=== PATIENT | male | born 1990 | race Caucasian/White ===

== ENCOUNTER 2018-03-04 13:47 | Emergency (ER) | payer SELFPAY ==
[2018-03-04 14:14] VITALS: BP 123/66
--- NOTE | 2018-03-04 14:52 | UC ---
Throat Pain/Nasal Thang HPI - HPI Summary HPI Summary: The patient is a 27-year-old male who is sent here for evaluation of his symptoms. He was at work today when he developed nausea and vomited once. He states that he has had hot and cold flashes since last evening. He has a mild sore throat. He has nasal congestion. He has mild headache. He denies any myalgias or arthralgias. He has no chest pain or shortness of breath. No longer has any nausea. Any abdominal pain. - History of Current Complaint Chief Complaint: UCGeneralIllness Stated Complaint: VOMITING Time Seen by Provider: 03/04/18 14:29 Hx Obtained From: Patient Onset/Duration: Sudden Onset, Lasting Hours Severity: Mild Pain Intensity: 0 Pain Scale Used: 0-10 Numeric Cough: Nonproductive Associated Signs & Symptoms: Positive: Sinus Discomfort, Fever - kayli, Vomiting - x1 - Allergies/Home Medications Allergies/Adverse Reactions: Allergies Allergy/AdvReac Type Severity Reaction Status Date / Time Latex, Natural Rubber Allergy Hives Verified 03/04/18 14:12 PMH/Surg Hx/FS Hx/Imm Hx Previously Healthy: Yes - Surgical History Surgical History: None - Family History Known Family History: Positive: Hypertension - Mom, Diabetes - Mom - Social History Alcohol Use: Occasionally Substance Use Type: None Smoking Status (MU): Heavy Every Day Tobacco Smoker Type: Cigarettes Amount Used/How Often: 1/2ppd Review of Systems Constitutional: Fever - kayli, Chills Skin: Negative Eyes: Negative ENT: Sore Throat, Sinus Congestion Respiratory: Negative Cardiovascular: Negative Gastrointestinal: Vomiting, Nausea Genitourinary: Negative Motor: Negative Neurovascular: Negative Musculoskeletal: Negative Neurological: Headache - mild Psychological: Negative All Other Systems Reviewed And Are Negative: Yes Physical Exam Triage Information Reviewed: Yes Appearance: Well-Appearing, No Pain Distress, Well-Nourished Vital Signs: Initial Vital Signs Temp 97.6 F 03/04/18 14:09 Pulse 65 03/04/18 14:09 Resp 16 03/04/18 14:09 BP 123/66 03/04/18 14:09 Pulse Ox 98 03/04/18 14:09 Vital Signs Reviewed: Yes Eyes: Positive: Conjunctiva Clear ENT: Positive: Hearing grossly normal, Pharyngeal erythema, Sinus tenderness, Uvula midline. Negative: Nasal congestion, Nasal drainage, Tonsillar swelling, Tonsillar exudate, Trismus, Muffled voice, Hoarse voice Neck: Positive: Supple, Nontender, Enlarged Nodes @ - ant cerv Respiratory: Positive: Lungs clear, Normal breath sounds, No respiratory distress, No accessory muscle use Cardiovascular: Positive: RRR, No Murmur Musculoskeletal: Positive: ROM Intact, No Edema Neurological: Positive: Alert Psychological Exam: Normal Skin Exam: Normal Diagnostics - Laboratory Diagnostic Studies Completed/Ordered: Strep (-) Throat Pain/Nasal Course/Dx - Differential Dx/Diagnosis Provider Diagnoses: Viral URI. acute nausea/vomiting Discharge - Sign-Out/Discharge Documenting (check all that apply): Patient Departure All imaging exams completed and their final reports reviewed: No Studies - Discharge Plan Condition: Stable Disposition: HOME Patient Education Materials: Upper Respiratory Infection (ED) Forms: *Work Release Referrals: No Primary Care Phys,NOPCP [Primary Care Provider] - Additional Instructions: recheck for new or worsening symptoms recheck in 1-2 days if not better - Billing Disposition and Condition Condition: STABLE Disposition: Home
== END 2018-03-04 15:20 | disposition home or self-care (01) ==
LOC: UCCORT 13:47
DX: J06.9 Acute upper respiratory infection, unspecified (principal); F17.210 Nicotine dependence, cigarettes, uncomplicated; Z91.040 Latex allergy status
CPT/HCPCS: 87651; 99202; G0463

== ENCOUNTER 2018-07-08 09:50 | Emergency (ER) | payer SELFPAY ==
[2018-07-08 12:15] VITALS: BP 115/68
--- NOTE | 2018-07-08 12:24 | UC ---
FLU HPI - HPI Summary HPI Summary: Pt with fevers, body aches, nausea, emesis (non bloody, no black) progressive x 2 days. tactile temp, chills + sick contact + cough with yellow sputum. no wheeze No meds taken. + tobacco use pt's medications reviewed this visit - History of Current Complaint Chief Complaint: UCRespiratory Stated Complaint: ACHES,NAUSEA,FEVER Time Seen by Provider: 07/08/18 12:18 Hx Obtained From: Patient Onset/Duration: Gradual Onset Severity Currently: Mild Severity Initially: Moderate Pain Intensity: 7 - Allergy/Home Medications Allergies/Adverse Reactions: Allergies Allergy/AdvReac Type Severity Reaction Status Date / Time Latex, Natural Rubber Allergy Hives Verified 07/08/18 12:10 Home Medications: Home Medications D-Methorphan/PE/Acetaminophen [Cold Relief/Non-Drowsy/Da 10-5-325 mg] 2 tab PO ONCE PRN 07/08/18 [History Confirmed 07/08/18] PMH/Surg Hx/FS Hx/Imm Hx Previously Healthy: Yes - Surgical History Surgical History: None - Family History Known Family History: Positive: Hypertension - Mom, Diabetes - Mom, Non- Contributory - Social History Occupation: Employed Full-time Alcohol Use: Occasionally Substance Use Type: Marijuana Substance Use Comment - Amount & Last Used: occasional use. Last used Sunday Smoking Status (MU): Heavy Every Day Tobacco Smoker Type: Cigarettes Amount Used/How Often: 1/2ppd Review of Systems All Other Systems Reviewed And Are Negative: Yes Constitutional: Positive: Fever, Fatigue ENT: Positive: Nasal Discharge, Sinus Congestion Respiratory: Positive: Cough Gastrointestinal: Positive: Vomiting, Nausea Musculoskeletal: Positive: Myalgia Physical Exam - Summary Physical Exam Summary: Vital Signs Reviewed: Yes A+Ox3, tired appearing Eyes: Conjunctiva Clear, MARTIR. EOM intact and full ENT: Hearing grossly normal TM x 2 clear, turbiantes and inflammed, + PND, mmoist, uvula midline, no exudate, no erythema Neck: Positive: Supple Respiratory: Positive: No respiratory distress, No accessory muscle use + coarse intermittent cough Cardiovascular: RRR nl s1, s2 no m/r CBT <2 sec abd soft + BS nt/nd no guarding, no distension no CVA Musculoskeletal Exam: WHEELER x 4 without difficulty Strength Intact, ROM Intact Neurological: Positive: Alert, + sensation throughout Psychological: Positive: Normal Response To Family Skin: Positive: no rash, no ecchymosis Triage Information Reviewed: Yes Vital Signs: Initial Vital Signs Temp 99 F 07/08/18 12:11 Pulse 69 07/08/18 12:11 Resp 17 07/08/18 12:11 BP 115/68 07/08/18 12:11 Pulse Ox 98 07/08/18 12:11 Flu Course/Dx - Course Course Of Treatment: Progressive congestion, body aches, cough, fever x 36 hours wiht nausea and emesis + influenza Will give zofran, apap motirn/apap hydrate decongestant work note humidifiy air - Differential Dx/Diagnosis Provider Diagnosis: Influenza A Discharge - Sign-Out/Discharge Documenting (check all that apply): Patient Departure All imaging exams completed and their final reports reviewed: No Studies - Discharge Plan Condition: Stable Disposition: HOME Prescriptions: Ondansetron ODT TAB* [Zofran 4 MG Odt TAB*] 4 mg PO Q4H PRN #10 tab.odt PRN Reason: Nausea Oseltamivir CAP* [Tamiflu CAP*] 75 mg PO BID #10 cap Patient Education Materials: Influenza (ED) Forms: *Gen. Provider Communication, *Work Release Referrals: [facility] [Outside] No Primary Care Phys,NOPCP [Primary Care Provider] - Additional Instructions: As discussed - your influenza test was positive today - you have "the flu" - Stay well hydrated. Drink plenty of non-alcoholic, non-caffinated beverages. - Alternate ibuprofen (Advil, Motrin) 600mg and Tylenol 1000mg every 3 hours for pain or fever. Take with food. Do NOT take for more than 4-5 days. - These infections are spread by secretions - do NOT share eating or drinking utensils - clean items you share with other people such as cell phones, computer mouse, TV remote, computer tablets,etc. Once you start to feel better, change your toothbrush and your pillowcase. - get plenty of restful sleep - humidify the air in the room where you sleep - boil water, run a hot steam shower, vaporizer, cups of water by heat register - okay to take over the counter decongestant and cough medication - Take medication as prescribed for nausea - contact your doctor or return with questions or concerns - Billing Disposition and Condition Condition: STABLE Disposition: Home
[2018-07-08 12:30] LABS: Influenza A Molecular POSITIVE (Negative)
[2018-07-08] MEDS ORDERED: Ondansetron ODT TAB* 4 MG PO ONE (12:36)
[2018-07-08] MEDS ORDERED: Acetaminophen TAB* 325 MG PO ONE (12:36)
== END 2018-07-08 13:17 | disposition home or self-care (01) ==
LOC: UCCORT 09:50
DX: R52 Pain, unspecified (principal); R50.9 Fever, unspecified; R11.0 Nausea
CPT/HCPCS: 99212; A9270-GY; G0463

== ENCOUNTER 2018-09-11 07:41 | Emergency (ER) | payer OTHER ==
[2018-09-11 08:06] VITALS: BP 114/65
--- NOTE | 2018-09-11 08:25 | UC ---
UC General HPI - HPI Summary HPI Summary: Patient heavy smoker, recently able to cut down to 1/2 ppd. Has a chronic cough , worried cough is worse, mostly concerned because yesterday after [employer], he had epigastric burning pain with tingling in epigastric region, improved after drinking milk. He laid in bad and coughed up black mucus. Happened one time. DOes get epigastric burning pain. Now feels like he is breathing in ice water and he feels cold when he breaths in. No fever. No chest pain. No congestion. No hx of inhaler use. This morning when he was outside he slipped on his steps and landed on right shoulder. His sister used to be an RN and helped him put his right shoulder back in its joint but he is still having pain. Hx of left shoulder dislocation. Meds: Reviewed - History of Current Complaint Chief Complaint: UCGeneralIllness Stated Complaint: COUGH S/P FALL RIGHT ELBOW/SHOULDER Time Seen by Provider: 09/11/18 08:01 Pain Intensity: 7 - Allergy/Home Medications Allergies/Adverse Reactions: Allergies Allergy/AdvReac Type Severity Reaction Status Date / Time Latex, Natural Rubber Allergy Hives Verified 07/08/18 12:10 Home Medications: Home Medications Glucosam/Chondr/Collagn/Hyalur [Th Glucosamine/Chondroiti] 1 cap PO DAILY [History Confirmed 09/11/18] PMH/Surg Hx/FS Hx/Imm Hx Previously Healthy: Yes - Surgical History Surgical History: None - Family History Known Family History: Positive: Hypertension - Mom, Diabetes - Mom, Non- Contributory - Social History Alcohol Use: Occasionally Substance Use Type: Marijuana Substance Use Comment - Amount & Last Used: occasional use Smoking Status (MU): Heavy Every Day Tobacco Smoker Type: Cigarettes Amount Used/How Often: 2- 1/2ppd Length of Time of Smoking/Using Tobacco: since age 15 Have You Smoked in the Last Year: Yes Review of Systems All Other Systems Reviewed And Are Negative: Yes Constitutional: Positive: Negative Respiratory: Positive: Cough Musculoskeletal: Positive: Other: - right shoulder pain Physical Exam Triage Information Reviewed: Yes Appearance: Well-Appearing Vital Signs: Initial Vital Signs Temp 98.5 F 09/11/18 07:55 Pulse 77 09/11/18 07:55 Resp 16 09/11/18 07:55 BP 114/65 09/11/18 07:55 Pulse Ox 98 09/11/18 07:55 Vital Signs Reviewed: Yes ENT: Positive: Normal ENT inspection Neck: Positive: Supple, Nontender Respiratory: Positive: Lungs clear, Normal breath sounds, Other: - coarse cough Cardiovascular: Positive: RRR, No Murmur Abdomen Description: Positive: Soft Musculoskeletal: Positive: Other: - right shoulder tenderness, limited ROM due to pain Diagnostics - Radiology CXR Radiology Interpretation Completed By: Radiologist Summary of Radiographic Findings: No acute finding right shoulder Radiology Interpretation Completed By: Radiologist Summary of Radiographic Findings: No acute fracture Course/Dx - Course Course Of Treatment: This is a 28 yr old who has PMhx of tobacco use who presents with cough and right shoulder pain Cough A. LIkely related to smoking, could be viral syndrome but less likely Could also be related to GERD with his indigestion Shoulder - No fracture or dislocation Plan For cough Recommend Albuterol inhaler with spacer as directed as needed Recommend trial of Prilosec take daily REcommend quit smoking For shoulder: Could be shoulder sprain or rotator cuff injury Recommend ibuprofen as needed for pain as directed -take with food Recommend follow up with [facility]oped[facility] - Diagnoses Provider Diagnosis: Cough, GERD (gastroesophageal reflux disease), Right shoulder strain Discharge - Sign-Out/Discharge Documenting (check all that apply): Patient Departure All imaging exams completed and their final reports reviewed: Yes - Discharge Plan Condition: Fair Disposition: HOME Prescriptions: Albuterol HFA INHALER* [Ventolin HFA Inhaler*] 2 puff INH Q4H PRN #1 mdi PRN Reason: Cough Omeprazole CAP (NF) [Prilosec CAP* 20 MG] 20 mg PO DAILY #30 cap.dr Spacer/Holding Chamber (NF) [Easivent CHAMBER (NF)] 1 applic INH Q4HR PRN #1 device PRN Reason: Cough Patient Education Materials: Rotator Cuff Injury (ED), Gastroesophageal Reflux Disease (ED) Forms: *Work Release Referrals: No Primary Care Phys,NOPCP [Primary Care Provider] - Everardo Navarrete MD [Medical Doctor] - Additional Instructions: Recommend Albuterol inhaler with spacer as directed as needed Recommend trial of Prilosec take daily REcommend quit smoking For shoulder: Could be shoulder sprain or rotator cuff injury Recommend ibuprofen as needed for pain as directed -take with food Recommend follow up with [facility] Disposition and Condition Condition: FAIR Disposition: Home
== END 2018-09-11 09:02 | disposition home or self-care (01) ==
LOC: UCCORT 07:41
DX: S46.911A Strain of unspecified muscle, fascia and tendon at shoulder and upper arm level, right arm, initial encounter (principal); W10.8XXA Fall (on) (from) other stairs and steps, initial encounter; W01.0XXA Fall on same level from slipping, tripping and stumbling without subsequent striking against object, initial encounter; Y93.01 Activity, walking, marching and hiking; Y92.018 Other place in single-family (private) house as the place of occurrence of the external cause; F17.210 Nicotine dependence, cigarettes, uncomplicated; R05 Cough; K21.9 Gastro-esophageal reflux disease without esophagitis; Z91.040 Latex allergy status; Z91.048 Other nonmedicinal substance allergy status
CPT/HCPCS: 71046; 99212; G0463